=== PATIENT | female | born 1955 | race Caucasian/White ===

== ENCOUNTER 2024-01-31 09:12 | Outpatient (CLI) | payer OTHER ==
[2024-01-31] MEDS ORDERED: Iopamidol 370 76% 100 ML VIAL ONE (12:16)
== END 2024-01-31 09:13 | disposition home or self-care (01) ==
LOC: CT 09:12
PROVIDERS: ATTEND Internal Medicine Hematology & Oncology
DX: C50.812 Malignant neoplasm of overlapping sites of left female breast (principal); R91.1 Solitary pulmonary nodule
CPT/HCPCS: 71260; 74177; 78306; A9503; Q9967

== ENCOUNTER 2024-02-08 08:38 | Outpatient (CLI) | payer OTHER ==
[2024-02-08] MEDS ORDERED: Magnevist 469MG/ML 20 ML VIAL ONE (09:33)
== END 2024-02-08 08:39 | disposition home or self-care (01) ==
LOC: BICMRI 08:38
PROVIDERS: ATTEND Internal Medicine Hematology & Oncology
DX: Z08 Encounter for follow-up examination after completed treatment for malignant neoplasm (principal); N63.25 Unspecified lump in the left breast, overlapping quadrants; Z85.3 Personal history of malignant neoplasm of breast
CPT/HCPCS: C8908

== ENCOUNTER 2024-02-17 11:45 | Outpatient (CLI) | payer OTHER | END 2024-02-17 11:46 | disposition home or self-care (01) | LOC: PET 11:45 | PROVIDERS: ATTEND Internal Medicine Hematology & Oncology | DX: C50.812 Malignant neoplasm of overlapping sites of left female breast (principal); R91.1 Solitary pulmonary nodule | CPT/HCPCS: 78815; A9552 ==